=== PATIENT | female | born 1965 | race Caucasian/White ===

== ENCOUNTER 2024-07-12 10:06 | Day surgery (SDC) | payer BC ==
[2024-07-12] MEDS ORDERED: Sodium Chloride 0.9% 10 ML Syringe FLUSH PRN (10:15)
[2024-07-12] MEDS: Lactated Ringers 1,000 ML IV SCH (10:45)
[2024-07-12] MEDS: Ondansetron 4 MG/2 ML SDV IVPUSH ONE (11:04)
[2024-07-12] MEDS ORDERED: Propofol 200 MG/20 ML SDV ONE (11:14)
[2024-07-12] MEDS ORDERED: Midazolam 1 MG/ML 2 ML SDV ONE (11:14)
[2024-07-12 14:47] VITALS: BP 110/58; PULSE 80
== END 2024-07-12 13:31 | disposition home or self-care (01) ==
LOC: KA.SDS 10:06
PROVIDERS: ATTEND Surgery
DX: Z12.11 Encounter for screening for malignant neoplasm of colon (principal); J45.909 Unspecified asthma, uncomplicated; E03.9 Hypothyroidism, unspecified
CPT/HCPCS: 00812; J2250; J2405; J2704; J3490; J7120